=== PATIENT | male | born 1985 | race Caucasian/White ===

== ENCOUNTER 2020-01-20 21:41 | Emergency (ER) | payer OTHER ==
[~2020-01-20] VITALS: Ht 180.3 cm; Wt 102.1 kg
[2020-01-20 21:43] VITALS: BP 136/68
== END 2020-01-20 22:46 | disposition left against medical advice (07) ==
LOC: ER 21:41
DX: M54.9 Dorsalgia, unspecified (principal); Z53.21 Procedure and treatment not carried out due to patient leaving prior to being seen by health care provider